=== PATIENT | male | born 1960 | race Two or more races ===

== ENCOUNTER 2024-10-05 15:11 | Outpatient (AMB) | payer OTHER, SELFPAY ==
--- NOTE | 2024-10-05 15:13 | A.OFFVIS_ITS ---
Intake Visit Reasons: enlarged prostate/ elevated PSA Intake Note: New Patient is present for with enlarge prostate and elevated PSA Urology Rx:none Blood Thinners:none Imaging completed: CT 06/05/2024 Labs done : none Night Nurse Required: No Accompanied by: Self / Same As Patient Allergies No Known Allergies Allergy (Verified 10/05/24 15:21) Results AMB Urinalysis, Automated UA Leukoctes 0 Doyle/uL Last Edit by MARCIA Morris on 10/05/24 16:00 UA Nitrite Negative Last Edit by MARCIA Morris on 10/05/24 16:00 UA Urobilinogen 0.2 mg/dL Last Edit by Gisela Osuna CCM on 10/05/24 16:0 0 UA Protein 15 mg/dL Last Edit by Gisela Osuna CCM on 10/05/24 16:00 UA pH 6.0 Last Edit by Gisela Osuna [facility] on 10/05/24 16:00 UA Blood 0 Justin/uL Last Edit by MARCIA Morris on 10/05/24 16:00 UA Specific [place] 1.015 Last Edit by MARCIA Morris on 10/05/24 16: 00 UA Ketone Negative Last Edit by MARCIA Morris on 10/05/24 16:00 UA Bilirubin 0 mg/dL Last Edit by MARCIA Morris on 10/05/24 16:00 UA Glucose 3 mg/dL Last Edit by Gisela Osuna CCM on 10/05/24 16:00 Assessment & Plan Assessment & Plan (1) Bladder outlet obstruction: Code(s): N32.0 - Bladder-neck obstruction Category: Medical Orders: Orders PSA,Total (Free>4and<10) Today N32.0 - Bladder-neck obstruction AMB Post Void Residual by ultrasound Today N32.0 - Bladder-neck obstruction AMB Urinalysis Automated Today Z13.9 - Encounter for screening, unspecified US bladder Today N32.0 - Bladder-neck obstruction Coding Diagnoses Bladder outlet obstruction N32.0
--- OUTSIDE RECORDS SUMMARY | 2024-10-05 16:04 | XMS_ITS | Patient Health Record ---
Author Organization [facility] Address [address] [place] [phone] Support Name Relationship Address Phone Ricardo Yin Guarantor Unknown [phone] Reason For Referral No Information Plan Of Treatment No Information Insurance Providers Payer Name Payer Address Payer Phone Subscriber Number Group Number Insured Name Patient Relationship to Insured Coverage Start Date Coverage End Date COVID19 HRSA Uninsured Testing and Treatment Fund Attention CARES Act Provider Relief Fund [address] [address] [place] [address] Ricardo Yin Self - patient is the insured
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
--- OUTSIDE RECORDS SUMMARY | 2024-10-05 16:05 | XMS_ITS | Clinical Summary ---
Author Organization [facility] Address [address] [place] [address] Care Team Providers Care Supervisor Bakery Sanitation Name Role Phone Pcp, No Primary Care Provider Unavailabl e Allergies No known active allergies Medications methocarbamol (ROBAXIN) 750 MG tablet Take 2 tablets (1,500 mg total) by mouth 3 (three) times a day. 20 tablet 12/23/2020 Active Social History Tobacco Use Types Packs/Day Years Used Date Smoking Tobacco: Never Assessed Sex and Gender Information Value Date Recorded Sex Assigned at Male 02/15/2023 8:00 PM EST Legal Sex Male 11:06 AM EDT Gender Identity Male 02/15/2023 8:00 PM EST Sexual Orientation Heterosexual (straight) 02/15 8:00 PM EST Last Filed Vital Signs Vital Sign Reading Time Taken Comments Blood Pressure 115/76 02/16/2023 12:47 AM EST Pulse 84 02/16/2023 12:47 AM EST Temperature 36.7 C (98 F) 02/16/2023 12:47 AM EST Respiratory Rate 16 02/16/2023 12:47 AM EST Oxygen Saturation 97% 02/16/2023 12:47 AM EST Inhaled Oxygen Concentration - - Weight - - Height - - Body Mass Index - - Plan of Treatment Health Maintenance Due Date Last Done Comments Hepatitis C Virus Screening 1961 HIV Screening 1974 DTaP/Tdap/Td Vaccines (1 - Tdap) 1980 Colonoscopy 2006 Pneumococcal Vaccines 50+ (1 of 1 - PCV) 12/23/2011 Zoster (Shingles) Vaccine (1 of 2) 12/23/2011 COVID-19 Vaccine ( season) 2023 04/20/2020, 03/20/2020 Influenza Vaccine 09/24/2024 11/29/2019, , 11/13/2018, Additional history exists RSV Vaccine 60 years and older and Patients (1 - 1-dose 75+ series) 2036 Hemoglobin A1C Discontinued 02/15/2023 Hepatitis B Vaccines Aged Out No long er eligible based on patient's age to complete this topic Procedures Procedure Name Priority Date/Time Associated Diagnosis Comments HEMOGLOBIN A1C WITH ESTIMATED AVERAGE GLUCOSE STAT 02/15/2023 7:55 PM EST from Last 3 Months or Most Recently Relevant to Health Maintenance Results * (ABNORMAL) HEMOGLOBIN A1C WITH ESTIMATED AVERAGE GLUCOSE (02/15/2023 7:55 PM EST) Hemoglobin A1C 11.4(H) <5.7 % 02/15/2023 11:00 PM EST [facility] Comment: A1c% Interpretation 5.7 - 6.0 Increase risk of diabetes 6.1 - 6.4 Higher risk of diabetes > or = 6.5 Consistent with diabetes Diabetes Care, 33(Supp 1):S1-S61, 2010 Estimated Average Glucose 280 mg/dL 02/15/2023 11:00 PM EST [facility] Blood specimen / Unknown 02/15/2023 7:55 PM EST 02/15/2023 8:19 PM EST Kiel Whitehead PA-C LAB BLOOD ORDERABLES Final Re sult [address] [address], [address] [address] from Last 3 Months or Most Recently Relevant to Health Maintenance Insurance [facility] Care Teams Supervisor Bakery Sanitation Relationship Specialty Start Date End Date Pcp, No PCP - General 02/15/23
== END 2024-10-05 15:50 | disposition home or self-care (01) ==
LOC: HO.HUSH 15:12
PROVIDERS: Visit Provider Urology
DX: Z13.9 Encounter for screening, unspecified (principal)

== ENCOUNTER → 2024-10-05 15:11 | Outpatient (BNVA) | payer OTHER, SELFPAY | PROVIDERS: Visit Provider Urology | DX: N32.0 Bladder-neck obstruction (principal); R97.20 Elevated prostate specific antigen [PSA]; Z13.9 Encounter for screening, unspecified | CPT/HCPCS: 81003 ==

== ENCOUNTER 2024-12-27 10:09 | Outpatient (REF) | payer OTHER, SELFPAY ==
--- NOTE | ~2024-12-27 | US_ITS ---
CLINICAL HISTORY: N32.0 - Bladder-neck obstruction US Urinary Bladder Comparison: None Findings: The urinary bladder is unremarkable. Prevoid volume: 438 mLPostvoid volume: 45 mL Ureteral jets are visualized bilaterally. The prostate gland measures 67 mL in volume. IMPRESSION: Normal urinary bladder Approximately 10% postvoid residual. Prostate gland enlargement. This document has been electronically signed by: Johnny Pittman MD on 12/28/2024 10:43:09
[2024-12-27 12:04] LABS: PSA,Total (Free>4and<10) 1.55 ng/mL (0.00-4.00)
--- OUTSIDE RECORDS SUMMARY | 2024-12-27 12:06 | XMS_ITS | Clinical Summary ---
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 Role Phone Pcp, No Primary Care [...] 50+ (1 of 1 - PCV) 12/23/2011 RSV Vaccine 50 years and older and Patients (1 - Risk 50-74 years 1-dose series) 12/23/2011 Zoster (Shingles) Vaccine (1 of 2) 12/23/2011 Influenza Vaccine 09/24/2024 11/29/2019, , 11/13/2018, Additional history exists COVID-19 Vaccine ( season) 2024 04/20/2020, 03/20/2020 Hemoglobin A1C Discontinued 02/15/2023 Hepatitis B Vaccines [...] 11.4(H) <5.7 % 02/15/2023 11:00 PM EST [facility] Comment: A1c% Interpretation 5.7 - 6.0 Increase risk of diabetes 6.1 - 6.4 Higher risk of diabetes > or = 6.5 Consistent with diabetes Diabetes Care, 33(Supp 1):S1-S61, 2010 Estimated Average Glucose 280 mg/dL 02/15/2023 11:00 PM EST [facility] Blood specimen / Unknown 02/15/2023 7:55 PM EST 02/15/2023 8:19 PM EST us Kiel Whitehead PA-C LAB BLOOD ORDERABLES Final Re sult [address] [address], [address] [address] from Last 3 Months or Most Recently Relevant to Health Maintenance Insurance [facility] Care Teams Rotary Rock Drilling Machine Operator Relationship Specialty Start Date End Date Pcp, No PCP - General 02/15/23
--- OUTSIDE RECORDS SUMMARY | 2024-12-27 12:06 | XMS_ITS | Patient Health Record ---
Author Organization [facility] enter Address [address] [place] [phone] Support Name Relationship Address Phone Ricardo Yin Guarantor Unknown [phone] Reason For Referral No Information Plan Of Treatment No Information Insurance Providers Payer Name Payer Address Payer Phone Subscriber Number Group Number Insured Name Patient Relationship to Insured Coverage Start Date Coverage End Date COVID19 HRSA Uninsured Testing and Treatment Fund Attention CARES Act Provider Relief Fund [address] [address] [place] [address] Ricardo Yin Self - patient is the insured
== END 2024-12-27 10:10 | disposition home or self-care (01) ==
LOC: HO.US 10:09
PROVIDERS: Visit Provider Urology
DX: N32.0 Bladder-neck obstruction (principal)
CPT/HCPCS: 36415; 76857; 84153

== ENCOUNTER → 2024-12-27 10:42 | Outpatient (BNV) | payer OTHER, SELFPAY | PROVIDERS: Visit Provider Radiology Vascular & Interventional Radiology | DX: N32.0 Bladder-neck obstruction (principal) | CPT/HCPCS: 76857 ==

== ENCOUNTER 2025-01-05 15:05 | Outpatient (AMB) | payer OTHER, SELFPAY ==
--- OUTSIDE RECORDS SUMMARY | 2020-01-17 12:30 | XMS_ITS | Continuity of Care Document ---
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 Name Role Phone Yessenia Francois RDH Unavailable Unavailable Medications Medication Instructions Dosage Effective Dates (start - stop) Status Comments CHLORHEXIDINE 0.12% RINSE SWISH WITH 15 ML FOR 30 SECONDS AND SPIT TWICE DAILY AFTER MEALS - Active Procedures Procedure Date Periodontal Scaling And Root Planing-One To Three Periodontal Scaling And Root Planing-One To Three Periodontal Scaling And Root Planing-One To Three Periodontal Scaling And Root Planing-One To Three Resin-Based Composite-One Surface, Poste rior Treatment Plan Complete Intraoral-Periapical First Film 020 Limited Oral Evaluation-Problem Focused Resin-Based Composite-Two Surfaces, Post erior Comprehensive Periodontal Evaluation-New Or Establ Intraoral-Complete Series (Including Bit ewings) Comprehensive Oral Evaluation-New Or Est ablished P Prophylaxis-Adult Oral Hygiene Instructions Nutritional Counseling For Control Of De ntal Disea Intraoral-Periapical Each Additional [place] m Intraoral-Periapical First Film 020 Limited Oral Evaluation-Problem Focused Advance Directives Directive Yes / No Effective Date File Name No Information Encounters Encounter Description Practice Location Reason(s) For Visit Diagnoses Date Provider Providers Copied on Encounter Ayan Che[facility], [address] [place] [address],[address], [place], [place], [id number], [place] tel:[phone] 2 [facility] Encounter for dental exam and cleaning w/o abnormal findings 0 Ebers Yessenia. [address] [place], [place], [id number] , [place]. tel:[phone] [facility], [address], [place], [place], [id number], [place] tel:[phone] 2 [facility] No Information 0 0 Matthew Pickens. [address] [place], [place], [id number] , [place]. tel:[phone] [facility], [address] [facility] [address], [place], [place], [id number], [place] tel:[phone] 2 [facility] Encounter for dental exam and cleaning w/o abnormal findings 0 Ebers Yessenia. [address] [place], [place], [id number] , [place]. tel:[phone] [facility], [address] [facility] [address], [place], [place], [id number], [place] tel:[phone] 2 [facility] Encounter for dental exam and cleaning w/o abnormal findings 0 Kandala Domitila. [address] [place], [place], [id number] , [place]. tel:[phone] [facility], [address] [facility] [address], [place], [place], [id number], [place] tel:[phone] 2 [facility] Encounter for dental exam and cleaning w/o abnormal findings 0 Kandala Domitila. [address] [place], [place], [id number] , [place]. tel:[phone] [facility], [address] [facility] [address], [place], [place], [id number], [place] tel:[phone] 2 [facility] Encounter for dental exam and cleaning w/o abnormal findings Jul- 0 Susana Ramesh. [address] [place], [place], [id number] , [place]. tel:[phone] [facility], [address] [facility] [address], [place], [place], [id number], [place] tel:[phone] 2 [facility] Encounter for dental exam and cleaning w/o abnormal findings 0 Rosascj Royidi. [address] [place], [place], [id number] , [place]. tel:[phone] [facility], [address] [facility] [address], [place], [place], [id number], [place] tel:[phone] 2 [facility] Encounter for dental exam and cleaning w/o abnormal findings 0 0 Matthew Pickens. [address] [place], [place], [id number] , [place]. tel:[phone] Family History Family Member Type Diagnosis Age At Onset No Information Payers Payer name Insurance type Covered democrat ID Nona vasquez(s) Denise [facility] Safety [facility] [id number] Social History Type Description Quantity Date Captured Comments Sex Male Smoking Status No Information Chief Complaint And Reason For Visit No Information Reason For Referral Reason For Referral No Information History Of Present Illness Encounter Date Complaint History Of Prese nt Illness No Information Functional Status Date Functional Assessmen t No Information Instructions Date Instruction Additional Infor mation No Information Assessments Type Assessment Date No Information Patient Care Teams Name Effective Dates (start - stop) Status Members No Information
--- OUTSIDE RECORDS SUMMARY | 2025-01-01 23:59 | XMS_ITS | Continuity of Care Document ---
Author Organization [facility] Address [address] [place] [address]- Care Team Providers Care Nut Tightener Name Role Phone Sabrina George MD Primary Care Physician En[place] [facility] [place](s): 09/20/24 - 01/01/25 [facility] [address] [place] [phone] Attending Physician: Fransisco Yoder MD Admitting Physician: Fransisco Yoder MD Referring Physician: Fransisco Yoder MD Encounter Type: Pre-OutPatient One Time Allergies, Adverse Reactions, Alerts Substance Criticality Severity Reaction Reaction Severity Status atorvastatin Active Immunizations Given and Recorded Vaccine Date Status Refusal Reason tetanus/diphtheria/pertussis, acel(Tdap) 09/22/20 Given tetanus/diphtheria/pertussis, acel(Tdap) 1 01/01/10 Given pneumococcal 23-valent vaccine 09/22/20 Given SARS-CoV-2 (COVID-19) mRNA-1273 vaccine 04/20/20 R ecorded SARS-CoV-2 (COVID-19) mRNA-1273 vaccine 03/20/20 R ecorded influenza virus vaccine, inactivated 2 11/29/19 Re corded influenza virus vaccine, inactivated 11/13/18 Give n influenza virus vaccine, inactivated 12/02/17 Give n influenza virus vaccine, inactivated 01/08/17 Give n influenza virus vaccine, inactivated 01/11/16 Give n influenza virus vaccine, inactivated 3 04/05/14 Gi nithin influenza virus vaccine, inactivated 4 11/05/11 Gi nithin influenza virus vaccine, inactivated 5 01/01/10 Gi nithin 1Admin Note: VIS GIVEN DATED 01/01 2Result Comment: Administered today in the clinic. 3Result Comment: [04/05/2014] Fluvirax 214-2014 4Admin Note: VIS GIVEN DATED: 08/26/11 5Admin Note: VIS GIVEN-DATED 10/03/09 Medications BD SHORT PEN NDL [id number] 31GX5/16 NEDL BD SHORT PEN NDL [id number] 31GX5/16 NEDL, See Instructions, # 90 Unknown, 11 Refills, Maintenance, USAR CON INSULINA CADA JAYDEN, 05/27/24 9:33:00 AM EDT, 170, cm, 05/14/24 8:58:00 EDT, Height Start Date: 05/27/24 Status: Ordered Medication Dispense Status: Completed Quantity: 90.0 Unit: Unknown Total Allowed Fills: 1 Fills Dispensed: 0 BD SHORT PEN NDL [id number] 31GX5/16 NEDL BD SHORT PEN NDL [id number] 31GX5/16 NEDL, See Instructions, # 30 Unknown, 11 Refills, TO ADMINISTER INSULIN DAILY, 170, cm, 11/23/20 13:34:00 EDT, Height Start Date: 12/12/20 Status: Ordered Medication Dispense Status: Completed Quantity: 30.0 Unit: Unknown Total Allowed Fills: 1 Fills Dispensed: 0 benzoyl peroxide 2.5% topical gel 1 application, Topically, 2 times a day, # 42 Gm, 0 Refills, Maintenance, 08/30/22 10:40:00 AM EDT, [facility] upon patient request if the prescription is for a schedule II opioid drug., 1 application Topically 2 times a day, 170, cm, 08/30/22 10:00:00 EDT, Height Start Date: 08/30/22 Status: Ordered Medication Dispense Status: Completed Quantity: 42.0 Unit: g Total Allowed Fills: 1 Fills Dispensed: 0 CPAP Machine See Instructions, # 1 each, Maintenance, Patient should be started on Auto CPAP 6-10 with a heated humidifier. Recommend ordering a machine with compliance data tracking capabilities and following residual AHI., 10/18/13 5:38:07 PM EDT, Compound Start Date: 10/18/13 Status: Ordered Medication Dispense Status: Completed Quantity: 1.0 Unit: each Total Allowed Fills: 1 Fills Dispensed: 0 diclofenac 1% topical gel 1 application, Topically, 4 times a day, # 100 Gm, 0 Refills, Maintenance, 04/08/22 10:58:00 AM EST,Gel, [facility] Partial fill upon patient request if the prescription is for a schedule II opioid drug., 170, cm, 04/08/22 9:32:00 EST, Height Start Date: 04/08/22 Status: Ordered Medication Dispense Status: Completed Quantity: 100.0 Unit: g Total Allowed Fills: 1 Fills Dispensed: 0 DilTIAZem (Eqv-Cardizem CD) 180 mg/24 hours oral capsule, extended release See Instructions, LAUREN 2 CAPSULAS POR LA BOCA CADA JAYDEN, # 180 capsule, 1 Refills, Maintenance, 09/07/24 2:28:00 PM EDT, [facility], 170, cm, 05/14/24 8:58:00 EDT, Height Start Date: 09/07/24 Status: Ordered Medication Dispense Status: Completed Quantity: 180.0 Unit: capsule Total Allowed Fills: 1 Fills Dispensed: 0 Eliquis 5 mg oral tablet See Instructions, LAUREN 1 TABLETA POR LA BOCA DOS VECES AL JAYDEN, # 60 tablet, 1 Refills, Maintenance, 11/25/24 11:00:00 AM EDT, [facility], 170, cm, 09/22/24 12:01:00 EDT, Height Start Date: 11/25/24 Status: Ordered Medication Dispense Status: Completed Quantity: 60.0 Unit: tablet Total Allowed Fills: 1 Fills Dispensed: 0 ezetimibe 10 mg oral tablet See Instructions, LAUREN 1 TABLETA POR LA BOCA CADA JAYDEN, # 90 tablet, 1 Refills, Maintenance, 04/09/24 10:53:00 AM EST, [facility] 170, cm, 11/26/23 8:22:00 EDT, Height Start Date: 04/09/24 Status: Ordered Medication Dispense Status: Completed Quantity: 90.0 Unit: tablet Total Allowed Fills: 2 Fills Dispensed: 0 famotidine 20 mg oral tablet See Instructions, LAUREN 1 TABLETA POR LA BOCA CADA JAYDEN EN LA HORA DE DORMIR, # 30 tablet, Refills 2, Tot. Refills 2, Maintenance, 08/20/23 10:32:00 AM EDT, Instructions Replace Required Details, [facility], [facility], 170, cm, 04/30/23 15:34:00 EST, Height Start Date: 08/20/23 Status: Ordered Medication Dispense Status: Completed Quantity: 30.0 Unit: tablet Total Allowed Fills: 3 Fills Dispensed: 0 Freestyle Ousmane 2 [place] Freestyle Ousmane 2 [place], See Instructions, # 1 each, Refills 0, Tot. Refills 0, Maintenance, Use as directed for DM2 E11.9, 09/22/24 12:03:00 PM EDT, Supply, 170, cm, 09/22/24 12:01:00 EDT, Height Start Date: 09/22/24 Status: Ordered Medication Dispense Status: Completed Quantity: 1.0 Unit: each Total Allowed Fills: 1 Fills Dispensed: 0 FREESTYLE OUSMANE 2 SENSOR SY Miscellaneous FREESTYLE OUSMANE 2 SENSOR SY Miscellaneous, See Instructions, # 2 Unknown, 11 Refills, Maintenance, USAR HUSSEIN INDICADO PARA CHEQUEAR LA AZUCAR DE LA CARSON CADA JAYDEN, 05/14/24 11:41:00 AM EDT, 170, cm,05/14/24 8:58:00 EDT, Height Start Date: 05/14/24 Status: Ordered Medication Dispense Status: Completed Quantity: 2.0 Unit: Unknown Total Allowed Fills: 1 Fills Dispensed: 0 FreeStyle Ousmane 3 Plus Sensors See Instructions, # 2 each, Refills 11, Tot. Refills 11, Maintenance, Use as directed to monitor blood sugar. Change sensor every 15 days; rotate sites. Dx E11.9 Duration - Lifetime, 12/10/24 9:46:00AM EDT, Label in Serbian please, Supply, 170, cm, 09/22/24 12:01:00 EDT, Height Start Date: 12/10/24 Status: Ordered Medication Dispense Status: Completed Quantity: 2.0 Unit: each Total Allowed Fills: 12 Fills Dispensed: 0 Indications: Type 2 diabetes mellitus without complications; Freestyle Ousmane Monitor See Instructions, # 1 each, Refills 0, Tot. Refills 0, Maintenance, FreeStyle Ousmane 2: use as directed for Type 2 Diabetes Mellitus, 04/23/23 4:04:00 PM EST, Supply, 170, cm, 04/23/23 15:14:00 EST, Height Start Date: 04/23/23 Stop Date: 05/23/23 Status: Ordered Medication Dispense Status: Completed Quantity: 1.0 Unit: each Total Allowed Fills: 1 Fills Dispensed: 0 Freestyle Lite Monitor See Instructions, # 1 each, Maintenance, check sugar tid and as needed for type 2 diabetes, on insulin E11.9, 09/22/24 12:16:00 PM EDT, Supply, 170, cm, 09/22/24 12:01:00 EDT, Height Start Date: 09/22/24 Status: Ordered Medication Dispense Status: Completed Quantity: 1.0 Unit: each Total Allowed Fills: 1 Fills Dispensed: 0 Freestyle Lite Test Strips See Instructions, # 100 each, Refills 11, Tot. Refills 11, Maintenance, check sugar tid and as needed for type 2 diabetes, on insulin E11.9, 09/22/24 12:17:00 PM EDT, Supply, 170, cm, 09/22/24 12:01:00 EDT, Height Start Date: 09/22/24 Status: Ordered Medication Dispense Status: Completed Quantity: 100.0 Unit: each Total Allowed Fills: 12 Fills Dispensed: 0 Lantus Solostar Pen 100 units/mL subcutaneous solution See Instructions, INYECTAR 10 UNIDADES DEBAJO DE LA PIEL CADA JAYDEN. ROTAR SITIO DE INYECCION, # 15 mL, 11 Refills, Maintenance, 04/09/24 12:13:00 PM EST, [facility], 170, cm, 11/26/23 8:22:00EDT, Height Start Date: 04/09/24 Status: Ordered Medication Dispense Status: Completed Quantity: 15.0 Unit: mL Total Allowed Fills: 1 Fills Dispensed: 0 lisinopril 20 mg oral tablet See Instructions, LAUREN 2 TABLETAS POR LA BOCA CADA JAYDEN, # 180 tablet, Refills 1, Tot. Refills 1, Maintenance, 04/09/24 6:55:00 AM EST, Instructions Replace Required Details, Route to Pharmacy Electronically, [facility], 170, cm, 11/26/23 8:22:00 EDT, Height Start Date: 04/09/24 Status: Ordered Medication Dispense Status: Completed Quantity: 180.0 Unit: tablet Total Allowed Fills: 2 Fills Dispensed: 0 metFORMIN 1000 mg oral tablet See Instructions, LAUREN 1 TABLETA POR LA BOCA DOS VECES AL JAYDEN CON COMIDAS, # 180 tablet, 0 Refills, Maintenance, 04/09/24 6:57:00 AM EST, [facility], 170, cm, 11/26/23 8:22:00 EDT, Height Start Date: 04/09/24 Status: Ordered Medication Dispense Status: Completed Quantity: 180.0 Unit: tablet Total Allowed Fills: 1 Fills Dispensed: 0 Pen [place], 31 G x 8 mm BD Ultra Fine III See Instructions, # 100 each, Refills 11, Tot. Refills 11, Maintenance, to administer insulin dailydx. E11.9, 05/26/24 11:21:00 AM EDT, Compound, 170, cm, 05/14/24 8:58:00 EDT, Height Start Date: 05/26/24 Status: Ordered Medication Dispense Status: Completed Quantity: 100.0 Unit: each Total Allowed Fills: 12 Fills Dispensed: 0 Readi-Cat 2 Smoothie Peralta 2% oral suspension See Instructions, Drink 450 ml (1 bottle) [address] scan Drink 450ml (1 bottle) [address] scan, # 2 each, 0 Refills, Maintenance, 05/24/24 2:27:00 PM EDT, [facility], Partial fill upon patient request if the prescription is for a schedule II opioid drug., Drink 450 ml (1 bottle) [address] scan; Drink 450ml (1 bottle) [address] scan,170, cm, 05/14/24 8:58:00 EDT, Height Start Date: 05/24/24 Status: Ordered Medication Dispense Status: Completed Quantity: 2.0 Unit: each Total Allowed Fills: 1 Fills Dispensed: 0 rosuvastatin 40 mg oral tablet See Instructions, LAUREN 1 TABLETA POR LA BOCA CADA JAYDEN (NO MASTICAR O TRITURAR), # 90 tablet, 3 Refills, Maintenance, 04/09/24 12:13:00 PM EST, [facility], 170, cm, 11/26/23 8:22:00 EDT, Height Start Date: 04/09/24 Status: Ordered Medication Dispense Status: Completed Quantity: 90.0 Unit: tablet Total Allowed Fills: 1 Fills Dispensed: 0 Trulicity Pen 1.5 mg/0.5 mL subcutaneous solution See Instructions, INYECTAR 0.5ML SUBCUTANEO CADA SEMANA HUSSEIN INDICADO. ROTAR LOS SITIOS DE INYECCION. DOSIS AUMENTADA EN 10/09/21, # 2 mL, 11 Refills, Maintenance, 01/08/24 1:28:00 PM EST, [facility], 170, cm, 11/26/23 8:22:00 EDT, Height Start Date: 01/08/24 Status: Ordered Medication Dispense Status: Completed Quantity: 2.0 Unit: mL Total Allowed Fills: 12 Fills Dispensed: 0 Problem List Condition Confirmation Course Effective Dates Status H ealth Status Informant Atrial fibrillation with controlled ventricular rate Confirmed Active Diabetes Confirmed Active Diabetes mellitus with proteinuria Confirmed Active Anticoagulated Confirmed Active HLD- On statin for secondary prevention LDL goal < 70 Confirmed Active Hypertension Confirmed Active Prostate enlargement mild-moderate CT Confirmed Active BAMBI (obstructive sleep apnea) Confirmed Active PSA elevation 4.9 , referred to Urology , and , then [facility] ; ([place] 2024 bladder trabeculations) messaging Team Confirmed 02/2019 Active Splenomegaly Confirmed Active TIA [Transient ischemic attack] 1 Confirmed Active Tubular adenoma [address] 1[address] CT 08/2011 ---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 2repeat cscope 2019 Social History Social History Type Response Smoking Status Former smoker, quit more than 30 days ago;Former smokeless tobacco user, quit more than 30 days ago; Type: Cigarettes; Tobacco use times per day: quit 10 years ago, smoked 1 cig/day for about 5 years; entered on: 10/28/18 Sexual Orientation Self described orien tation: ; Straight or heterosexual Sex Sex Representation Male (finding) Patient Care team information Care Team Personnel Name: Sabrina George MD Position: S Resident Member Role: PCP Address: [address] [place] [address] [place], [place] [address] Telecom: Care Team Related Persons Name: KUSH LORA Name: KATERINA WHITE Name: ROMEO BREWER Insurance Providers Guarantor name: JONATAN WHITE Health Plan Information #: 1 Payer: [employer] [place] Payer Identifier: SOL Member Number: [id number] Group Number: [id number] Subscriber Identifier: [id number] Relationship to Subscriber: self Coverage Type: Medicaid (Managed Care) Coverage Verification Date: NA Telecom: NA Address:
--- OUTSIDE RECORDS SUMMARY | 2025-01-01 23:59 | XMS_ITS | Continuity of Care Document ---
Author Organization [facility] Address [address] [place] [address]- Care Team Providers Care Cancellation Clerk Name Role Phone Sabrina George MD Primary Care Physician [phone] Encounter [facility] Date(s): 12/02/24 - 01/01/25 [facility] [address] [place], [place] [phone] Attending Physician: AdmTeresa turner Admitting Physician: AdmtrTeresa Referring Physician: Admtr, [id number] Encounter Type: Triage Allergies, Adverse Reactions, Alerts Substance Criticality Severity [...] GIVEN-DATED 10/03/09 Medications BD SHORT PEN NDL [id number] 31GX5/16 NEDL BD SHORT PEN NDL [id number] 31GX5/16 NEDL, See Instructions, # 90 Unknown, 11 Refills, Maintenance, USAR CON INSULINA CADA JAYDEN, 05/27/24 9:33:00 AM EDT, 170, cm, 05/14/24 8:58:00 EDT, Height Start Date: 05/27/24 Status: Ordered Medication Dispense Status: Completed Quantity: 90.0 Unit: Unknown Total Allowed Fills: 1 Fills Dispensed: 0 BD SHORT PEN NDL [id number] 31GX5/16 NEDL BD SHORT PEN NDL [id number] 31GX5/16 NEDL, See Instructions, # 30 Unknown, 11 Refills, TO ADMINISTER INSULIN DAILY, 170, cm, 11/23/20 13:34:00 EDT, Height Start Date: 12/12/20 Status: Ordered Medication Dispense Status: Completed Quantity: 30.0 Unit: Unknown Total Allowed Fills: 1 Fills Dispensed: 0 benzoyl peroxide 2.5% topical gel 1 application, Topically, 2 times a day, # 42 Gm, 0 Refills, Maintenance, 08/30/22 10:40:00 AM EDT, Gel, [facility], Partial fill upon patient request if the [...] 0 Refills, Maintenance, 04/08/22 10:58:00 AM EST,Gel, [facility]., Partial fill upon patient request if [...] 1 Refills, Maintenance, 09/07/24 2:28:00 PM EDT, [facility], 170, cm, 05/14/24 8:58:00 EDT, Height Start Date: 09/07/24 Status: Ordered Medication Dispense Status: Completed Quantity: 180.0 Unit: capsule Total Allowed Fills: 1 Fills Dispensed: 0 Eliquis 5 mg oral tablet See Instructions, LAUREN 1 TABLETA POR LA BOCA DOS VECES AL JAYDEN, # 60 tablet, 1 Refills, Maintenance, 11/25/24 11:00:00 AM EDT, [facility], 170, cm, 09/22/24 12:01:00 EDT, Height Start Date: 11/25/24 Status: Ordered Medication Dispense Status: Completed Quantity: 60.0 Unit: tablet Total Allowed Fills: 1 Fills Dispensed: 0 ezetimibe 10 mg oral tablet See Instructions, LAUREN 1 TABLETA POR LA BOCA CADA JAYDEN, # 90 tablet, 1 Refills, Maintenance, 04/09/24 10:53:00 AM EST, [facility] 170, cm, 11/26/23 8:22:00 EDT, [...] 10:32:00 AM EDT, Instructions Replace Required Details, [facility], [facility], 170, cm, 04/30/23 15:34:00 EST, Height Start Date: 08/20/23 Status: Ordered Medication Dispense Status: Completed Quantity: 30.0 Unit: tablet Total Allowed Fills: 3 Fills Dispensed: 0 Freestyle Ousmane 2 [place] Freestyle Ousmane 2 [place], See Instructions, # 1 each, Refills 0, [...] - Lifetime, 12/10/24 9:46:00AM EDT, Label in Gabonese please, Supply, 170, cm, 09/22/24 12:01:00 EDT, [...] 11 Refills, Maintenance, 04/09/24 12:13:00 PM EST, [facility], 170, cm, 11/26/23 8:22:00EDT, Height Start Date: 04/09/24 Status: Ordered Medication Dispense Status: Completed Quantity: 15.0 Unit: mL Total Allowed Fills: 1 Fills Dispensed: 0 lisinopril 20 mg oral tablet See Instructions, LAUREN 2 TABLETAS POR LA BOCA CADA JAYDEN, # 180 tablet, Refills 1, Tot. Refills 1, Maintenance, 04/09/24 6:55:00 AM EST, Instructions Replace Required Details, Route to Pharmacy Electronically, [facility], 170, cm, 11/26/23 8:22:00 EDT, Height Start Date: 04/09/24 Status: Ordered Medication Dispense Status: Completed Quantity: 180.0 Unit: tablet Total Allowed Fills: 2 Fills Dispensed: 0 metFORMIN 1000 mg oral tablet See Instructions, LAUREN 1 TABLETA POR LA BOCA DOS VECES AL JAYDEN CON COMIDAS, # 180 tablet, 0 Refills, Maintenance, 04/09/24 6:57:00 AM EST, [facility], 170, cm, 11/26/23 8:22:00 EDT, Height Start Date: 04/09/24 Status: Ordered Medication Dispense Status: Completed Quantity: 180.0 Unit: tablet Total Allowed Fills: 1 Fills Dispensed: 0 Pen [place], 31 G x 8 mm BD Ultra [...] 0 Refills, Maintenance, 05/24/24 2:27:00 PM EDT, [facility], Partial fill upon patient request if the [...] 3 Refills, Maintenance, 04/09/24 12:13:00 PM EST, [facility], 170, cm, 11/26/23 8:22:00 EDT, Height Start Date: 04/09/24 Status: Ordered Medication Dispense Status: Completed Quantity: 90.0 Unit: tablet Total Allowed Fills: 1 Fills Dispensed: 0 Trulicity Pen 1.5 mg/0.5 mL subcutaneous solution See Instructions, INYECTAR 0.5ML SUBCUTANEO CADA SEMANA HUSSEIN INDICADO. ROTAR LOS SITIOS DE INYECCION. DOSIS AUMENTADA EN 10/09/21, # 2 mL, 11 Refills, Maintenance, 01/08/24 1:28:00 PM EST, [facility], 170, cm, 11/26/23 8:22:00 EDT, Height Start [...] , and , then [facility] ; ([place] 2024 bladder trabeculations) messaging Team [...] or heterosexual Sex Sex Representation Male (finding) Procedure * Event Display: Cardiovascular Result Scanned Authored Date: Laboratory * Event Display: Laboratory Result Scanned Authored Date: * Event Display: Non BH Lab Results Authored Date: Cardiology Consult note * Event Display: Consult Note Cardiology Authored Date: * Event Display: Consult Note Cardiology Authored Date: Patient Care team information Care Team Personnel Name: Sabrina George MD Position: [facility] Resident Member Role: PCP Address: [address] [place] [address] Telecom: Care Team Related Persons Name: KUSH LORA Name: KATERINA WHITE Name: ROMEO BREWER Insurance Providers Guarantor name: JONATAN WHITE Health Plan Information #: 1 Payer: [facility] Payer Identifier: NA Member Number: [id number] Group Number: [id number] Subscriber Identifier: SOL Relationship to Subscriber: self Coverage Type: Medicaid (Managed Care) Coverage Verification Date: NA Telecom: NA Address:
--- NOTE | 2025-01-05 15:52 | A.OFFVIS_ITS ---
Intake Visit Reasons: 3M PSA/US/PVR Intake Note: Patient is present for PSA/US/PVR Urology Med: None Antibiotic Allergy: None Blood Thinner: Juliaquis PVR: 18ml 12/27/2024- PSA- 1.55 Bladder US- 12/28/2024 Administrative Library Assistant Required: Yes Administrative Library Assistant Language: Zimbabwean Allergies No Known Allergies Allergy (Verified 01/05/25 15:56) HPI Comments Details: Ricardo is a pleasant male. He is seen for the following urologic conditions - lower urinary tract symptoms Zimbabwean translation provided in office by qualified vp medical Three-month follow-up PVR 20 cc Enlarged prostate on ultrasound Minimal symptoms P.r.n. follow-up Urinary tract symptoms Background diabetes insulin dependent on metformin PSA 01/18 1.5 Bladder ultrasound 70 g prostate Review of Systems Const Denies chills and Denies fever(s) Card Reports no additional complaints and Denies syncope Resp Denies cough GI Denies abdominal pain and Denies heartburn Reports as per HPI and Denies change in libido Neuro Denies syncope Psych Denies change in libido Endo Denies change in libido Physical Exam Const General: cooperative, healthy appearing, comfortable and no acute distress Orientation/consciousness: patient oriented x3 HEENT Face and sinus: Yes normal facial exam Mouth: moist mucous membranes Neck Neck: Yes normal visual inspection, Yes full ROM and Yes trachea midline Chest Chest palpation & inspection: normal inspection of the chest Resp Effort & Inspection: normal respiratory effort, able to speak in complete sentences and no respiratory distress GI Inspection: Yes normal to inspection Back/Spine/Pelvis Cervical Spine: normal cervical lordosis Thoracic/Lumbar Spine: thoracic and lumbar spine normal to inspection Skin General skin exam: no rashes or lesions noted Neuro General: patient oriented x3, gait normal, tone normal and moves all extremities Extrem General: Yes normal to inspection and Yes capillary refill normal Office Procedures Post Void Residual Post Residual Void Post Void Residual (PVR): 18 [id number] Void Residual by ultrasound Assessment & Plan Assessment & Plan (1) Bladder outlet obstruction: Code(s): N32.0 - Bladder-neck obstruction Category: Medical Plan P.r.n. Orders: Orders AMB Post Void Residual by ultrasound Today N32.0 - Bladder-neck obstruction Patient Instructions: This note is constructed using voice recognition software. While every effort has been made to ensure accuracy pressure vessel inspector errors may have been included. Imaging studies, laboratory and physical exam results were discussed and reviewed in detail. No major barriers to patient understanding were identified. An opportunity to ask questions regarding the treatment plan was provided. All questions were answered. The patient expressed understanding and agreement with the above treatment plan. The patient is aware they should contact our office by phone for worsening of their current condition or the appearance of new urologic symptoms. Compliance is encouraged with any medications and followup testing that is ordered. It is a privilege to participate in the urologic care of your patient. If you have any questions or concerns regarding treatment for the above conditions, or other urologic issues, please do not hesitate to contact me. The office telephone contact is [phone]. Sincerely, Dr Dayday Peralta MD, [facility] - Urology Compassionate Specialist Care for the Genitourinary System Coding Level of Care Code Est Pt Level 3 (64223) Diagnoses Bladder outlet obstruction N32.0 CPT Codes Post Residual Void - PVR CPT Code: 41834-Jijn Void Residual by ultrasound ([id number])
--- OUTSIDE RECORDS SUMMARY | 2025-01-05 18:25 | XMS_ITS | Clinical Summary ---
Author Organization [facility] Address [address] [place] [address] Care Team Providers Care Product Marketing Specialist Name Role Phone Pcp, No Primary Care [...] 11.4(H) <5.7 % 02/15/2023 11:00 PM EST [facility] Comment: A1c% Interpretation 5.7 - 6.0 Increase risk of diabetes 6.1 - 6.4 Higher risk of diabetes > or = 6.5 Consistent with diabetes Diabetes Care, 33(Supp 1):S1-S61, 2010 Estimated Average Glucose 280 mg/dL 02/15/2023 11:00 PM EST [facility] Blood specimen / Unknown 02/15/2023 7:55 PM EST 02/15/2023 8:19 PM EST us Kiel Whitehead PA-C LAB BLOOD ORDERABLES Final Re sult [address] [address], [address] [address] from Last 3 Months or Most Recently Relevant to Health Maintenance Insurance [facility] Care Teams Product Marketing Specialist Relationship Specialty Start Date End Date Pcp, No PCP - General 02/15/23
--- OUTSIDE RECORDS SUMMARY | 2025-01-05 18:25 | XMS_ITS | Patient Health Record ---
Author Organization [facility] enter Address [address] [place] [id number] Support Name Relationship Address Phone Ricardo Yin Guarantor Unknown [phone] Reason For Referral No Information Plan Of Treatment No Information Insurance Providers Payer Name Payer Address Payer Phone Subscriber Number Group Number Insured Name Patient Relationship to Insured Coverage Start Date Coverage End Date COVID19 HRSA Uninsured Testing and Treatment Fund Attention CARES Act Provider Relief Fund [address] [address] [place] [address] Ricardo Yin Self - patient is the insured
== END 2025-01-05 16:18 | disposition home or self-care (01) ==
LOC: HO.HUSH 15:06
PROVIDERS: Visit Provider Urology
DX: N32.0 Bladder-neck obstruction (principal)
CPT/HCPCS: 99213

== ENCOUNTER → 2025-01-05 15:05 | Outpatient (BNVA) | payer OTHER, SELFPAY | PROVIDERS: Visit Provider Urology | DX: N32.0 Bladder-neck obstruction (principal) | CPT/HCPCS: 51798; 99212 ==